=== PATIENT | female | born 1945 | race Caucasian/White ===

== ENCOUNTER 2022-11-06 05:38 | Outpatient (CLI) | payer MEDICARE, MEDICAID ==
[~2022-11-06] VITALS: Ht 160 cm; Wt 43.2 kg
[~2022-11-06 05:38] MED LIST: ASP325TEC PO; DOXY100C2 PO; HYDR118S10 PO; KETO-22 PO; LSNP20T PO
[2022-11-06] MEDS ORDERED: CILO50TA2 PO (10:41)
[2022-11-06] MEDS ORDERED: RIVA2.5T5 PO (10:41)
[2022-11-06] MEDS ORDERED: ATOR20TA66 PO (10:41)
[2022-11-06] MEDS ORDERED: LISI20TA26 PO (10:49)
== END 2022-11-06 11:14 | disposition home or self-care (01) ==
LOC: PREOP 05:38
PROVIDERS: ATTEND Specialist
DX: Z01.818 Encounter for other preprocedural examination (principal)

== ENCOUNTER 2022-12-07 05:34 | Outpatient (CLI) | payer MEDICARE, MEDICAID ==
[~2022-12-07] VITALS: Ht 160 cm; Wt 43.2 kg
[~2022-12-07 05:34] MED LIST changes: +ATOR20TA66 PO; +CILO50TA2 PO; +LISI20TA26 PO; +RIVA2.5T5 PO
== END 2022-12-07 14:07 | disposition home or self-care (01) ==
LOC: PREOP 05:34
PROVIDERS: ATTEND Specialist
DX: Z01.818 Encounter for other preprocedural examination (principal)

== ENCOUNTER → 2022-12-26 | Outpatient (CLI) | payer MEDICARE, MEDICAID | END | disposition home or self-care (01) | LOC: PREOP 05:40 | PROVIDERS: ATTEND Specialist | DX: Z01.818 Encounter for other preprocedural examination (principal) ==